=== PATIENT | female | born 2000 | race Caucasian/White ===

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

== ENCOUNTER 2021-03-17 21:49 | Emergency (ER) | payer BC ==
[~2021-03-17] VITALS: Ht 154.9 cm; Wt 52.3 kg
[~2021-03-17 21:49] MED LIST: JUNEL FE 1/20 21 TAB PO; PHENERGAN 25 TA25 MG PO
[2021-03-17 22:10] VITALS: TEMP 99.2
[2021-03-18 00:18] LABS: BASO % 0.4 % (0.0-2.0); EOS % 0.3 % (0-4.0); GRAN # 6.6 (1.4-6.5); GRAN % 85.5 % (42.2-75.2); HEMATOCRIT 38.4 % (35.0-45.0); HEMOGLOBIN 12.4 g/dl (12.0-15.0); LYMPH # 0.4 (1.2-3.4); LYMPH % 5.1 % (20.0-51.0); MEAN CELL VOLUME 84 fl (80.0-95.0); MEAN CORPUSCULAR HEMOGLOBIN 27 pg (26.0-32.0); MEAN CORPUSCULAR HGB CONC 32 g/dl (33.0-37.0); MEAN PLATELET VOLUME 12.6 fl (7.4-10.4); MONO # 0.6 (0.1-0.6); MONO % 8.3 % (1.7-9.3); PLATELET COUNT 131 K/mm3 (130-400); RED BLOOD COUNT 4.59 M/mm3 (4.10-5.30); REDCELL DISTRIBUTION WIDTH-CV 12.3 % (11.5-14.5)
[2021-03-18 00:40] LABS: ALBUMIN 4.4 gm/dL (3.5-5.0); BILIRUBIN,TOTAL 0.3 mg/dL (0.0-1.0); C-REACTIVE PROTEIN 0.6 mg/dL (0.0-0.9); CALCIUM 9.4 mg/dL (8.4-10.2); CREATININE, serum 0.75 (0.52-1.25); POTASSIUM 3.8 mmol/L (3.4-5.0); TOTAL PROTEIN 7.4 gm/dL (6.4-8.2)
[2021-03-18 01:18] LABS: STREP SCREEN NEGATIVE
[2021-03-18 01:42] LABS: COLLECTION METHOD CLEAN CATCH
[2021-03-18 01:49] LABS: PH 6 (5-8); SQUAMOUS EPITHELIAL None Seen /hpf; URINE APPEARANCE Clear; URINE BACTERIA Rare /hpf; URINE BILIRUBIN Negative (NEGATIVE); URINE BLOOD Negative (NEGATIVE); URINE COLOR Straw; URINE GLUCOSE Negative (NEGATIVE); URINE KETONE Negative (NEGATIVE); URINE LEUKOCYTE ESTERASE Negative (NEGATIVE); URINE NITRATE Negative (NEGATIVE); URINE PROTEIN(semi-quant) Negative (NEGATIVE); URINE RBC None Seen /hpf; URINE UROBILINOGEN Negative (NEGATIVE)
[2021-03-18 02:50] VITALS: BP 133/70; PULSE 104
== END 2021-03-18 02:50 | disposition home or self-care (01) ==
LOC: COL.ER 21:49
PROVIDERS: Nurse Practitioner
DX: B34.9 Viral infection, unspecified (principal); Z20.822 Contact with and (suspected) exposure to COVID-19; Z32.02 Encounter for pregnancy test, result negative
CPT/HCPCS: J1885; J2405; J7030

== ENCOUNTER → 2022-08-20 | Outpatient (CLI) | payer BC | LOC: COL.RAD 08-15 07:30 | DX: E05.90 Thyrotoxicosis, unspecified without thyrotoxic crisis or storm (principal) ==